=== PATIENT | female | born 1940 | race Caucasian/White ===

== ENCOUNTER 2016-11-18 08:51 | Day surgery (SDC) | payer OTHER, MEDICARE ==
[~2016-11-18] VITALS: Ht 167.6 cm; Wt 61.2 kg
[~2016-11-18 08:51] MED LIST: ACTOS15 MG PO; ALPRAZOLAM0.25 M2 PO; ALPRAZOLAM0.5 MG PO; ASPIR-LOW81 MG PO; GLIPIZIDE ER2.5 MG PO; GLIPIZIDE XL5 MG PO; LISINOPRIL-HCT1 EACH PO; LO-DOSE ASPIRIN81 M1 PO; METFORMIN HCL1000 MG PO; METOPROLOL SUCC25 MG PO; NAPROXEN SODIU500 MG PO; OMEPRAZOLE20 MG PO; PRAVASTATIN SOD80 MG PO; PRILOSEC20 MG PO; TYLENOL EXTRA500 MG PO; ZESTORETIC,P1 TABLET PO; ZETIA10 MG PO
[2016-11-18 10:11] LABS: POINT-OF-CARE METER ID UU14174212
== END 2016-11-18 11:07 | disposition home or self-care (01) ==
LOC: PAIN 08:51 → SDC 09:30 → PAIN 11:07
PROVIDERS: Anesthesiology Pain Medicine
PROC: 3E0S33Z Introduction of Anti-inflammatory into Epidural Space, Percutaneous Approach (ICD-10-PCS; principal; 2016-11-18)
DX: M54.16 Radiculopathy, lumbar region (principal); F41.9 Anxiety disorder, unspecified; M19.90 Unspecified osteoarthritis, unspecified site; I10 Essential (primary) hypertension; E11.9 Type 2 diabetes mellitus without complications; E78.5 Hyperlipidemia, unspecified; Z83.3 Family history of diabetes mellitus; Z80.42 Family history of malignant neoplasm of prostate; Z87.891 Personal history of nicotine dependence; Z79.82 Long term (current) use of aspirin; Z88.5 Allergy status to narcotic agent; Z88.8 Allergy status to other drugs, medicaments and biological substances
CPT/HCPCS: 82948; J1100; J2250; J3010

== ENCOUNTER 2016-12-22 09:26 | Day surgery (SDC) | payer OTHER, MEDICARE ==
[~2016-12-22] VITALS: Ht 170.2 cm; Wt 60.8 kg
[~2016-12-22 09:26] MED LIST changes: +TOPROL XL50 MG PO
[2016-12-22 10:19] LABS: POINT-OF-CARE METER ID UU14174212
== END 2016-12-22 11:23 | disposition home or self-care (01) ==
LOC: PAIN 09:26 → SDC 10:00 → PAIN 10:00
PROVIDERS: Anesthesiology Pain Medicine
PROC: 3E0S33Z Introduction of Anti-inflammatory into Epidural Space, Percutaneous Approach (ICD-10-PCS; principal; 2016-12-22)
DX: M47.26 Other spondylosis with radiculopathy, lumbar region (principal); E11.9 Type 2 diabetes mellitus without complications; I10 Essential (primary) hypertension; F41.9 Anxiety disorder, unspecified; Z87.891 Personal history of nicotine dependence; Z79.82 Long term (current) use of aspirin; Z79.84 Long term (current) use of oral hypoglycemic drugs; Z83.3 Family history of diabetes mellitus; Z80.42 Family history of malignant neoplasm of prostate; Z88.5 Allergy status to narcotic agent; Z88.8 Allergy status to other drugs, medicaments and biological substances
CPT/HCPCS: 82948; J1100; J2250